=== PATIENT | female | born 1960 | race Caucasian/White ===

== ENCOUNTER → 2017-10-30 | Outpatient (CLI) | payer SELFPAY | LOC: HRAD 14:48 | PROVIDERS: ATTEND Urology | DX: N28.89 Other specified disorders of kidney and ureter (principal) ==

== ENCOUNTER → 2017-11-02 | Outpatient (CLI) | payer SELFPAY ==
--- NOTE | 2017-11-04 10:09 | RADRPT ---
EXAM DATE/TIME: 11/02/2017 15:14 CONSULTATION: 57 year-old female with history of recently diagnosed 2.8 cm partially exophytic enhanc ing mass in the inferior right renal pole. RENAL score of 4 (R1, E1,N1, A/P, L1). This mass is very a menable to percutaneous ablation. Biopsy will also be performed at that time. Jimmy Reese MD on November 04, 2017 at 9:59 Board Certified Radiologist. This report was verified electronically.
== END ==
LOC: HRAD 14:58
PROVIDERS: ATTEND Urology
DX: N28.89 Other specified disorders of kidney and ureter (principal)

== ENCOUNTER 2017-11-17 12:22 | Day surgery (SDC) | payer OTHER ==
[2017-11-17 12:50] LABS: MEAN CELL VOLUME 83.4 FL (80.0-100.0); MEAN CORPUSCULAR HEMOGLOBIN 28.4 PG (27.0-34.0); PLATELET COUNT 369 TH/MM3 (150-450); RED BLOOD COUNT 4.92 MIL/MM3 (4.00-5.30); RED CELL DISTRIBUTION WIDTH 13.8 % (11.6-17.2); REVIEW FLAG FINAL; WHITE BLOOD COUNT 11.8 TH/MM3 (4.0-11.0)
[2017-11-17 12:59] LABS: APTT (PATIENT) 28.5 SEC (24.3-30.1); INTERNATIONAL NORMALIZED RATIO 1.1 RATIO; PROTHROMBIN TIME - PATIENT 10.7 SEC (9.8-11.6)
[2017-11-17 14:04] VITALS: BP 163/73; PULSE 90; RESP 20; TEMP 97.5; O2SAT 95
[2017-11-17] MEDS ORDERED: EVEN500C3 PO (14:08)
[2017-11-17] MEDS ORDERED: IBUP1TAB7 PO (14:08)
[2017-11-17] MEDS ORDERED: ASPI-516 CHEW (14:08)
[2017-11-17] MEDS ORDERED: LOSA25TA PO (14:08)
[2017-11-17] MEDS ORDERED: METO50TA PO (14:08)
[2017-11-17] MEDS ORDERED: GREE150C PO (14:08)
[2017-11-17] MEDS ORDERED: METF500 PO (14:13)
--- NOTE | 2017-11-17 16:06 | RADRPT ---
EXAM DATE/TIME: 11/17/2017 00:00 [facility] COMPARISON : INDICATIONS : CONSULT FOR CRYOABLATION OBJECTIVE: Temperature: 97.5 Heart Rate: 94 Blood Pressure: 163/73 Respiratory: 18 Oximetry: 95 PNEUMONIA VACCINE: YES HISTORY OF PRESENT ILLNESS: 57-year-old white female with history of incidentally discovered 2.8 cm mass in the posterior inferio r pole the right kidney following CT examination for dysuria and flank pain. Patient has a strong fam irina history of malignancy. She denies any fevers chills or unintentional weight loss. Initial symptom s have resolved. PAST MEDICAL HISTORY : 1. Hypertension. 2. RENAL MASS 3. Renal calculi. 4. OVARIAN CYST 5. Osteoarthritis. PAST SURGICAL HISTORY : 1. Cholecystectomy. 2. LEFT TOTAL KNEE REPLACEMENT 3. GATRIC BYPASS SX 4. TUBAL LIGATION SOCIAL HISTORY : No alcohol use. Tobacco;none. Patient has a ALLERGIES: CLARITHROMYCIN MEDICATIONS: 1. Lcxnycs22 mg q.d. 2. Lopressor (Metoprolol) 50 mg q.d. 3. LOSARTAN 25 mg q.d. 4. MVI q.d. 5. EVENING PRIMOSE OIL q.d. 6. GREEN TEA q.d. 7. ROBAXIN prn PHYSICAL EXAMINATION: General: No acute distress Abdomen: Soft, nontender nondistended. IMAGING STUDIES: CT examination dated 10/27/2017 was reviewed. This demonstrates a 2.8 cm solid primarily exophytic mas s arising from the inferior posterior right kidney. No perinephric mass or evidence for metastatic di sease. No venous or IVC thrombus. ASSESSMENT: 57-year-old female with incidentally discovered 2.8 cm solid renal mass in the posterior right inferi or pole. This mass is very amenable to percutaneous ablation. Extensive discussion regarding options including surgical resection. Patient is also aware that current data demonstrates reasonably similar outcomes for cryoablation versus surgical resection at 10 years. However, more fci data is not available. Patient is motivated to avoid surgical intervention and wants to proceed with ablation. PLAN: CT-guided cryoablation and biopsy. TIME SPENT: 20 minutes. Jimmy Reese MD on November 17, 2017 at 15:57 Board Certified Radiologist. This report was verified electronically.
[2017-11-18] MEDS ORDERED: ROBA500T PO (08:10)
[2017-11-18] MEDS ORDERED: LIDOCAINE HCL 1% 20 ML VIAL ONE (10:09)
== END 2017-11-17 15:59 | disposition home or self-care (01) ==
LOC: HROP 12:22 → HRIP 13:20 → CLAB 15:59
PROVIDERS: ATTEND Urology
DX: N28.89 Other specified disorders of kidney and ureter (principal); I10 Essential (primary) hypertension
CPT/HCPCS: 36415; 85027; 85610; 85730

== ENCOUNTER 2017-11-18 07:34 | Day surgery (SDC) | payer OTHER ==
[~2017-11-18] VITALS: Ht 172.7 cm; Wt 118.6 kg
[~2017-11-18 07:34] MED LIST: ASPI-516 CHEW; EVEN500C3 PO; GREE150C PO; IBUP1TAB7 PO; LOSA25TA PO; METF500 PO; METO50TA PO
[2017-11-18 07:54] VITALS: BP 157/87; PULSE 84; RESP 20; TEMP 97.6; O2SAT 97
[2017-11-18] MEDS ORDERED: SODIUM CHLOR 0.9% 1000 ML IV SCH (08:00)
[2017-11-18] MEDS ORDERED: ROBA500T PO (08:10)
[2017-11-18] MEDS ORDERED: SODIUM CHLORID 0.9% 500 ML IV PRN (08:15)
[2017-11-18] MEDS ORDERED: LACTATED RINGER'S 1000 ML IV PRN (08:15)
[2017-11-18 08:46] LABS: BICARBONATE 26.9 MEQ/L (21.0-32.0)
[2017-11-18] MEDS ORDERED: ceFAZolin 2 GM PREMIX 50 ML ONE (09:55)
--- NOTE | 2017-11-18 11:34 | PD.RAD ---
Post CT Procedure Prog Note Pre Procedure Diagnosis: (1) Right kidney mass Post Procedure Diagnosis: (1) Right kidney mass Procedure Date: Nov 18, 2017 Supervising Radiologist: Jimmy Reese Anesthesia: General Plan of Activity Patient to Unit: PACU Patient Condition: Good See PACS Report for procedural detail/treatment Jimmy Reese MD Nov 18, 2017 11:34
[2017-11-18] MEDS ORDERED: oxyCODONE/ACETAMINOPHEN 5 MG/325 MG TAB PO PRN (11:45)
[2017-11-18] MEDS ORDERED: DO NOT ADM ANY ANTICOAGULANT DRUGS PRN (12:10)
--- NOTE | 2017-11-18 12:12 | RADRPT ---
EXAM DATE/TIME: 11/18/2017 10:34 [facility] COMPARISON: No previous studies available for comparison. INDICATIONS : 57 year-old female with history of incidentally discovered 2.8 cm mass in the posterior inferior pole of the right kidney. Patient presents for biopsy and ablation. BIOPSY SITE: Right DEVICE(S): 1.) 18 gauge Temno core biopsy needle MEDICAL HISTORY : None. SURGICAL HISTORY : None. ENCOUNTER: Initial ACUITY: 1 day PAIN SCORE: 0/10 LOCATION: Right A total of two core specimen(s) were obtained and sent to the laboratory for pathologic evaluation. PROCEDURE: 1. CT guided renal biopsy. Prior to the procedure informed consent was obtained. Any appropriate prior imaging studies were rev iewed. Using automated exposure control and adjustment of the mA and/or kV according to patient size, radiat ion dose was kept as low as reasonably achievable to obtain optimal diagnostic quality images. DICOM format image data is available electronically for review and comparison. The site was prepped in a sterile fashion. Full sterile technique was used, including cap, mask, reena rile gloves and gown and a large sterile sheet. Hand hygiene and 2% chlorhexidine and/or betadine/al cohol prep was utilized per protocol for cutaneous antisepsis. The skin and subcutaneous tissues wer e infiltrated with local anesthetic solution. With CT guidance the previously identified target was localized. Biopsy was performed using the presc ribed needle as above. Adequate hemostasis was obtained with compression at the puncture site. Follow-up CT scan reveals no hemorrhage. CONCLUSION: Uncomplicated CT guided right renal mass biopsy, as above. Please see CT ablation rep ort for additional details. Jimmy Reese MD on November 18, 2017 at 12:09 Board Certified Radiologist. This report was verified electronically.
[2017-11-18] MEDS ORDERED: *PROMETHAZINE 25 MG/ML VIAL PERIprocedural use ONLY ONE (12:16)
[2017-11-18] MEDS ORDERED: *ONDANSETRON 4 MG VIAL PERIprocedural Use ONLY ONE (12:33)
[2017-11-18 12:52] LABS: HEMATOCRIT 40.7 % (35.0-46.0); REVIEW FLAG FINAL
[2017-11-18 12:55] VITALS: BP 134/87; PULSE 66; RESP 18; TEMP 97.9; O2SAT 96
[2017-11-18 13:18] VITALS: BP 146/73; PULSE 75; RESP 18; O2SAT 97
[2017-11-18 13:48] VITALS: BP 132/66; PULSE 72; RESP 18; O2SAT 97
--- NOTE | 2017-11-18 13:57 | EKG ---
Date Performed: 11/18/2017 Time Performed: 08:15:19 PTAGE: 57 years EKG: Sinus rhythm POSSIBLE ANTERIOR MYOCARDIAL INFARCTION , OF INDETERMINATE AGE ABNORMAL ECG NO PREVIOUS TRACING DOCTOR: Navin White Interpretating Date/Time 11/18/2017 13:55:16
[2017-11-18 14:48] VITALS: BP 136/69; PULSE 85; RESP 20; O2SAT 98
--- NOTE | 2017-11-18 15:16 | RADRPT ---
EXAM DATE/TIME: 11/18/2017 10:34 INDICATIONS : 57 year-old female with history of incidentally discovered 2.8 cm mass in the post erior inferior pole of the right kidney. Patient presents for biopsy and ablation. Anesthesia and pain control was provided by the Anesthesia department. DEVICE(S): 1.) Cryoablation probe 14g x 2 MEDICAL HISTORY : None. SURGICAL HISTORY : None. ENCOUNTER: Initial ACUITY: 1 day PAIN SCORE: 0/10 LOCATION: Right PROCEDURE : 1. CT guided cryoablation. Under sterile conditions and using aseptic technique with CT guidance the mass was localized and sati sfactory approach was taken to access the lesion. Using automated exposure control and adjustment of the mA and/or kV according to patient size, radiation dose was kept as low as reasonably achievable to obtain optimal diagnostic quality images. DICOM format image data is available electronically for review and comparison. Mozes Cryoprobes were employed using percutaneous technique employing the prescribed probes. A freeze-thaw, freeze-thaw technique was employed and serial imaging demonstrated an ice ball encomp assing the entire lesion. Post procedure images demonstrate expected postoperative changes without e vidence of hematoma. CONCLUSION: 1. Uncomplicated CT-guided percutaneous cryoablation of 2.8 cm right renal mass. Jimmy Reese MD on November 18, 2017 at 15:12 Board Certified Radiologist. This report was verified electronically.
[2017-11-18 16:19] LABS: HEMATOCRIT 43.8 % (35.0-46.0); REVIEW FLAG FINAL
== END 2017-11-18 16:38 | disposition home or self-care (01) ==
LOC: HSDC 07:34 → HRIP 07:38 → HSDC 16:38
PROVIDERS: ATTEND Urology
DX: C64.1 Malignant neoplasm of right kidney, except renal pelvis (principal); R94.31 Abnormal electrocardiogram [ECG] [EKG]; Z01.810 Encounter for preprocedural cardiovascular examination; I10 Essential (primary) hypertension
CPT/HCPCS: 50200; 50593; 77012; 77013; 80048; 85014; 85018; 88305; 93005; C2618; J0690; J2405; J2550; J3010; J7030

== ENCOUNTER 2018-02-25 18:38 | Emergency (ER) | payer OTHER ==
[~2018-02-25] VITALS: Ht 172.7 cm; Wt 123.7 kg
[~2018-02-25 18:38] MED LIST changes: +ROBA500T PO
[2018-02-25 18:55] VITALS: BP 140/75; PULSE 94; RESP 18; TEMP 99.2; O2SAT 95
[2018-02-25] MEDS ORDERED: FLUT1SPR5 EACH NARE (19:19)
[2018-02-25] MEDS ORDERED: MULTTAB67 PO (19:20)
--- NOTE | 2018-02-25 19:44 | PD ---
HPI Chief Complaint: Cold / Flu Symptoms Time Seen by Provider: 19:20 Travel History International Travel<30 days: No Contact w/Intl Traveler<30days: No Traveled to known affect area: No History of Present Illness HPI 57-year-old female presents emergency department for evaluation of burning in her upper chest, cough, congestion started several days ago. Patient states that she was treated for sinusitis and completed a 7 day course of antibiotics 2 weeks ago. Says that she has had a productive cough with some yellow and clear sputum. She says that she may have asthma or bronchitis because she has the burning in her chest though she denies history of asthma or chronic bronchitis.. Denies chest pain or shortness of breath. Denies fever, chills, nausea, vomiting or diarrhea. Says she does have a history of kidney cancer and had a biopsy recently. Says her eosinophils continue to be elevated and does not know why it would like a blood test to evaluate for this. 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 She has no other complaints or concerns today. PFSH Past Medical History Cancer: Yes Diabetes: No Diminished Hearing: No Hepatitis: No Hypertension: Yes Musculoskeletal: Yes (OSTEOARTHRITIS) Reproductive: Yes (OVARIAN CYSTS) Immunizations Current: Yes Tetanus Vaccination: < 5 Years Influenza Vaccination: Yes ?: Not Past Surgical History Abdominal Surgery: Yes ([place], GASTRIC BYPASS) AICD: No Gynecologic Surgery: Yes (TUBAL LIGATION, D& C) Joint Replacement: Yes (LEFT KNEE) Pacemaker: No Other Surgery: Yes (cryo ablation of kidney) Social History Alcohol Use: No Tobacco Use: No Substance Use: No Allergies-Medications (Allergen,Severity, Reaction): Coded Allergies: clarithromycin (Verified Allergy, Severe, Hives, 11/18/17) bee venom protein (honey bee) (Verified Allergy, Unknown, 11/18/17) Reported Meds & Prescriptions Reported Meds & Active Scripts Active Ventolin Hfa 18 GM Inh (Albuterol Sulfate) 90 Mcg/Act Aer 2 Puff INH Q4H PRN Reported Multiple Vitamin 1 Tab 1 Tab PO DAILY Flonase Nasal Dennison (Fluticasone Nasal Dennison) 50 Mcg/Act Dennison 50 Mcg EACH NARE BID Glucophage (Metformin HCl) 500 Mg Tab 500 Mg PO DAILY With a meal Losartan (Losartan Potassium) 25 Mg Tab 25 Mg PO DAILY Aspirin 81 Mg Chew 81 Mg CHEW DAILY Metoprolol Tartrate 50 Mg Tab 50 Mg PO DAILY Review of Systems Except as stated in HPI: all other systems reviewed are Neg Physical Exam Narrative GENERAL: Well-nourished, well-developed patient. SKIN: Focused skin assessment warm/dry. HEAD: Normocephalic. EYES: No scleral icterus. No injection or drainage. NECK: Supple, trachea midline. No JVD or lymphadenopathy. Pharynx pink and moist. CARDIOVASCULAR: Regular rate and rhythm without murmurs, gallops, or rubs. RESPIRATORY: Slight wheeze to the left upper lobes. No rales, rhonchi. The tender palpation of the chest wall. GASTROINTESTINAL: Abdomen soft, non-tender, nondistended. No CVA tenderness MUSCULOSKELETAL: No cyanosis, or edema. BACK: Nontender without obvious deformity. No CVA tenderness. Data Data Last Documented VS Vital Signs Date Time Temp Pulse Resp B/P (MAP) Pulse Ox O2 Delivery O2 Flow Rate FiO2 02/25/18 19:20 95 02/25/18 18:55 99.2 94 18 140/75 (96) Orders Orders Chest, Pa & Lat (02/25/18 19:33) Albuterol-Ipratropium Neb (Duoneb Neb) (02/25/18 19:45) Ed Discharge Order (02/25/18 21:11) [facility] Medical Decision Making Medical Screen Exam Complete: Yes Emergency Medical Condition: Yes Differential Diagnosis Upper respiratory infection, bronchitis, asthma Narrative Course 57-year-old female presents emergency department for evaluation of burning in her upper chest, cough, congestion started several days ago. Patient states that she was treated for sinusitis and completed a 7 day course of antibiotics 2 weeks ago. Says that she has had a productive cough with some yellow and clear sputum. She says that she may have asthma or bronchitis because she has the burning in her chest though she denies history of asthma or chronic bronchitis.. Denies chest pain or shortness of breath. Denies fever, chills, nausea, vomiting or diarrhea. Says she does have a history of kidney cancer and had a biopsy recently. Says her eosinophils continue to be elevated and does not know why it would like a blood test to evaluate for this. 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 Vital signs are stable. Exam findings essentially unremarkable except for slight reason left upper lobe. Duo nebs administered. Chest x-ray ordered. I do not feel labs are necessary today as patient's vital signs are stable, she is afebrile, and patient's symptoms are not concerning for systemic infection or pneumonia. Last Impressions Chest X-Ray 02/25/181932 Signed Impressions: Service Date/Time: February 19:52 - CONCLUSION: No acute disease. Miller Pham MD Patient says she does feel little better after the DuoNeb's. As explaining the plan to the patient, patient preferred not to have any steroids because of the side effects. I do not feel that they were absolutely necessary for this patient. Patient will receive albuterol inhaler as an outpatient. Says she has previously had an inhaler and understands how to use this. I recommended she follow-up with her primary care physician this week. Return to the emergency department for worsening or persistent symptoms. Diagnosis Primary Impression: Bronchitis Referrals: Primary Care Physician Additional Instructions: Take all medication as prescribed. Follow-up with primary care physician within 1 week. If your symptoms persist or worsen return to the emergency department. Scripts Albuterol 18 GM Inh (Ventolin Hfa 18 GM Inh) 90 Mcg/Act Aer 2 PUFF INH Q4H Y for SHORTNESS OF BREATH, #1 INHALER 0 Refills Prov: North Claudio MD 02/25/18 Disposition: 01 DISCHARGE HOME Condition: Stable Quita Decker Feb 25, 2018 19:44
[2018-02-25] MEDS ORDERED: VENTAER INH (19:45)
[2018-02-25] MEDS: RESP: ALBUTEROL 2.5 MG/IPRATROPIUM 0.5 MG NEB (SCH) INH (19:50)
--- NOTE | 2018-02-25 21:05 | RADRPT ---
EXAM DATE/TIME: 02/25/2018 19:52 [facility] COMPARISON: No previous studies available for comparison. INDICATIONS : Short of breath. MEDICAL HISTORY : Renal calculi. SURGICAL HISTORY : Tubal ligation. Cholecystectomy. ENCOUNTER: Initial ACUITY: 1 day PAIN SCORE: 0/10 LOCATION: Bilateral chest FINDINGS: PA and lateral views of the chest demonstrate the lungs to be symmetrically aerated without evidence of mass, infiltrate or effusion. The cardiomediastinal contours are unremarkable. Osseous structure s are intact. CONCLUSION: No acute disease. Miller Pham MD on February 25, 2018 at 21:02 Board Certified Radiologist. This report was verified electronically.
== END 2018-02-25 21:34 | disposition home or self-care (01) ==
LOC: PHED 18:38 → PHEFT 21:34
DX: J40 Bronchitis, not specified as acute or chronic (principal); R20.8 Other disturbances of skin sensation; I10 Essential (primary) hypertension; M19.90 Unspecified osteoarthritis, unspecified site; R06.02 Shortness of breath; Z85.528 Personal history of other malignant neoplasm of kidney
CPT/HCPCS: 71046; 94640; 94664; 99283